=== PATIENT | male | born 1960 | race Caucasian/White ===

== ENCOUNTER 2018-10-13 09:44 | Day surgery (SDC) | payer OTHER, SELFPAY ==
--- NOTE | 2018-10-13 | PATH_ITS ---
[facility] Accession Number: [id number] . 01 Material submitted: . PART A: colon - POLYP AT 60 CM X3 PART B: colon - 20 CM POLYP BIOPSY X5 . 02 Diagnosis: A. Colon, Polyp at 60 cm x3, Biopsy: Tubular adenoma in seven of approximately ten fragments. . B. Colon, 20 cm Polyp x5, Biopsy: Multiple fragments of tubular adenoma and hyperplastic polyp. MRV/10/16/2018 . 02 Electronically signed: . Enriqueta Esteban MD, Pathologist NPI- [id number] . 01 Gross description: . Part A: POLYP AT 60 CM X3: Received in formalin are multiple fragment(s) of mobley, soft tissue measuring 0.1 x 0.1 x 0.1 cm to 0.3 x 0.2 x 0.2 cm which is entirely submitted and submitted entirely in 1 cassette(s) Part B: 20 CM POLYP BIOPSY X5: Received in formalin are multiple fragment(s) of mobley, soft tissue measuring 0.1 x 0.1 x 0.1 cm to 0.3 x 0.2 x 0.2 cm which is entirely submitted and submitted entirely in 1 cassette(s) /DMC /DMC . 02 Pathologist provided ICD-10: D12.6 . 02 CPT . 637297, [id number] Performed at: 01 [facility] [address], [place], [place] [id number] MD Perry Vera MD Phone: [phone] Performed at: 02 [facility] [address] , [place], [place] [id number] MD Enriqueta Esteban MD Phone: [phone]
[2018-10-13] MEDS: SODIUM CHLORIDE 0.9% 1,000 ML 200 ML IV (09:58)
[2018-10-13 09:59] VITALS: BMI 43.2
[2018-10-13 10:10] VITALS: BP 133/88; PULSE 91; RESP 16; TEMP 36.6; O2SAT 97
--- NOTE | 2018-10-13 10:56 | PM.HP.1 ---
History of Present Illness Date Patient Seen: 10/13/18 Time Patient Seen: 10:56 Chief complaint: [id number] Narrative: Patient is a gentleman whose last colonoscopy was 2 years ago. He has had numerous polyps removed on his prior 3 exams the last 1 there was none. He was told over to come back in 2 years. He is here for that follow-up exam. He has requested light sedation. Patient History Medical History Obstructive sleep apnea of adult (Chronic) Insomnia (Chronic) Morbid obesity with body mass index of 40.0-49.9 (Chronic) Periodic limb movement disorder (PLMD) (Chronic) Gingivitis (Acute) Fatigue (Chronic) Gout (Chronic) Hyperlipidemia (Chronic) Low back pain syndrome (Chronic) Pre-diabetes (Chronic) Snoring (Chronic) Venous (peripheral) insufficiency (Chronic) Alcohol abuse (Inactive) Social History (Updated 09/01/18 @ 12:48 by MAJO Banks) marital status: unmarried,single household members: none lives independently: Yes caregiver/support person: No Smoking Status: Current every day smoker substance use type: does not use Family & Social History Social History: household members none lives independently Yes caregiver/support person No Tobacco & Substance use: Smoking Status Current every day smoker Meds Home Medications Medication Instructions Recorded Confirmed Type atenolol 100 mg PO QDAY #0 08/25/12 10/13/18 History aspirin 81 mg PO Q DAY #0 08/28/12 10/13/18 History atorvastatin 40 mg tablet 40 mg PO DAILY 06/29/18 10/13/18 History cyclobenzaprine 10 mg tablet 10 mg PO BEDTIME 06/29/18 10/13/18 History diclofenac 1 % topical gel 2 gram TOP QID 06/29/18 10/13/18 History lisinopril 20 mg tablet 20 mg PO DAILY 06/29/18 10/13/18 History Allergies Allergy/AdvReac Type Severity Reaction Status Date / Time No Known Allergies Allergy Uncoded 09/14/18 14:47 Review of Systems Review of Systems All systems reviewed & are unremarkable except as noted in HPI and below Exam Vital Signs (past 8 hours): - 10/13/18 10:10 Temperature 97.8 F Pulse Rate 91 H Respiratory Rate 16 Blood Pressure 133/88 Pulse Oximetry 97 Oxygen Delivery Method Room Air Narrative Exam Narrative: Pleasant cooperative patient no apparent distress. Lungs are clear to auscultation. No rales or rhonchi. Heart regular rate and rhythm no murmur gallop. Abdomen is very protuberant and soft, nontender without mass. No obvious hernias. Patient is alert and oriented x3. Assessment & Plan Assessment & Plan narrative: The patient for a screening colonoscopy. I have discussed the procedure with them. Risks of bleeding, perforation which would necessitate major operation, failure to find remove all lesions, the potential tattoo were all discussed. All questions were answered. They wished to proceed.
--- NOTE | 2018-10-13 10:58 | PM.PREOP ---
Pre-operative Note Interval Note History & Physical reviewed/Exam performed by Physician: Yes Changes to H&P: No ASA Class (for procedural sedation): III
--- NOTE | 2018-10-13 13:03 | PM.OP.ENDO ---
Operative Date/Time/Diagnoses Date of procedure: 10/13/18 Time of procedure: 13:03 Pre-op diagnosis: Screening exam patient with a history of numerous polyps. Last exam 2 years ago. He was advised to have a repeat exam now. Post-op diagnosis: same (Extensive sigmoid diverticulosis. Occasional diverticula elsewhere. Eight small polyps removed with cold biopsy forceps.) Procedure & Clinicians Study performed: Colonoscopy with cold biopsy Same procedure as scheduled: Yes Indications: Screening Surgeon: Delvis Cameron Procedure Notes SCOAP/Timeout: Performed Procedure in detail: The patient was placed in the left lateral decubitus position and underwent IV sedation directed by the surgeon consisting of fentanyl and Versed. Digital exam was unremarkable. I really could not feel his prostate due to his body habitus.. The scope was inserted and advanced through the rectum into the sigmoid, descending, transverse, and ascending colon. The sigmoid contain numerous diverticuli it was difficult to get through it. There was a small polyp noted on the way in at 60 cm which was biopsied and removed.. The cecum was reached identified by the ileocecal valve and the appendiceal opening. The ileocecal valve was successfully cannulated. The terminal ileum was normal in appearance. The scope was gradually brought out. Polyps were found at 60 cm(2 additional lesions which were placed with the 1st lesion. within the rectum from the anal verge to about 20 cm there were 5 additional lesions. The largest of these almost appeared to be scar like. I biopsied it to remove the entire surface and then I also took a deeper bite under the mucosa as there appeared to be a small rounded area. The scope ultimately was retroflexed in the rectum. The appearance was remarkable for small internal hemorrhoids. The scope was removed and the patient tolerated the procedure well. The prep was good. Scope withdrawal time: 28 minutes Sedation minutes: 46 Findings: diverticulosis (Heavy assist concentration in the sigmoid), internal hemorrhoids and polyp (Eight small polyps removed) Specimen(s): other (Polyps) Complications: none Recommendations: Colonscopy in 3 years and Start medication(s) (Metamucil daily) Follow up: as needed Disposition: PACU
[2018-10-13] MEDS: MIDAZOLAM 5 MG/5 ML VIAL IV (13:04)
[2018-10-13] MEDS: fentaNYL 250 MCG/5 ML INJ IV (13:04)
[2018-10-13 13:05] VITALS: BP 150/82; PULSE 77; RESP 20; TEMP 37.1; O2SAT 98
[2018-10-13 13:15] VITALS: BP 137/86
== END 2018-10-13 13:28 | disposition home or self-care (01) ==
PROVIDERS: PCP Internal Medicine; Visit Provider Specialist
PROC: 0DJD8ZZ Inspection of Lower Intestinal Tract, Via Natural or Artificial Opening Endoscopic (ICD-10-PCS; CPT 45378; principal; 2018-10-13 10:45)
DX: Z12.11 Encounter for screening for malignant neoplasm of colon (principal); K57.30 Diverticulosis of large intestine without perforation or abscess without bleeding; D12.6 Benign neoplasm of colon, unspecified; G47.33 Obstructive sleep apnea (adult) (pediatric); E66.01 Morbid (severe) obesity due to excess calories; Z68.41 Body mass index [BMI] 40.0-44.9, adult; R73.03 Prediabetes; F17.210 Nicotine dependence, cigarettes, uncomplicated
CPT/HCPCS: 45380; 99152; 99153; J2250; J3010

== ENCOUNTER 2022-03-24 15:29 | Emergency (ER) | payer OTHER, MEDICAID, SELFPAY ==
[2022-03-24 15:45] VITALS: BP 165/85; PULSE 81; RESP 24; TEMP 36.6; O2SAT 96; BMI 41.8
--- NOTE | 2022-03-24 15:51 | DI.RAD.S_ITS ---
PROCEDURE: XR CHEST 2V INDICATIONS: shortness of breath TECHNIQUE: 2 views of the chest were acquired. COMPARISON: [facility], , CHEST FOR PICC PLACEMENT, 08/30/2012, 16:37. FINDINGS: Surgical changes and devices: None. Lungs and pleura: Right lung is clear. Subtle left basilar pulmonary radiopacities are present. No pleural effusion or pneumothorax. Mediastinum: Mediastinal contours are normal. Heart size is normal. Bones and chest wall: No suspicious bony abnormalities. Soft tissues appear unremarkable. IMPRESSION: Subtle left basilar pulmonary radiopacities suspicious for aspiration or infection. Short interval followup is recommended with resolution of the patient's symptoms to ensure there is no underlying pulmonary pathology. Dictated by: Abby Vazquez M.D. on 03/24/2022 at 16:39 Approved by: Abby Vazquez M.D. on 03/24/2022 at 16:39
[2022-03-24 16:58] LABS: Influenza A - CEPHEID Flu A POSITIVE (NEGATIVE)
[2022-03-24 16:59] LABS: COVID-19 CEPHEID 4-PLEX PCR Negative (Negative); Influenza B - CEPHEID Flu B NEGATIVE (NEGATIVE); Respiratory Syncytial Virus Negative (Negative)
[2022-03-24 19:45] LABS: Add Manual Diff / Slide Review NO; Basophils Absolute Auto 0 /uL (0-100); Basophils Percent Auto 0.3 % (0-2); Eosinophils Absolute Auto 100 /uL (0-450); Eosinophils Percent Auto 0.7 % (2-4); Hematocrit 47.1 % (41-53); Hemoglobin 16.1 g/dL (13.5-17.5); Lymphocytes Absolute Auto 2600 /uL (1100-4500); Lymphocytes Percent Auto 29.3 % (25-40); Mean Corpuscular HGB Conc 34.3 % (30-36); Mean Corpuscular Hemoglobin 30.5 PG (26-34); Mean Corpuscular Volume 89.1 fL (80-100); Monocytes Absolute Auto 1200 /uL (0-900); Neutrophils Absolute Auto 5000 /uL (1500-7000); Neutrophils Percent Auto 55.7 % (50-75); Platelet Count 284 X10^3/uL (150-400); Red Blood Cell Count 5.28 X10^6/uL (4.5-5.9); Red Cell Distribution Width 13.1 % (11.6-14.8); White Blood Cell Count 8.9 X10^3/uL (4.5-11.0)
[2022-03-24 19:55] LABS: INR 1.1 (0.9-1.3); Prothrombin Time 12.4 SECONDS (10.1-12.7)
[2022-03-24 20:03] LABS: Lactate (Lactic Acid) 1.4 mmol/L (0.7-2.1)
[2022-03-24 20:04] LABS: Alanine Aminotransferase 38 IU/L (<50); Albumin 4.2 g/dL (3.5-5.0); Albumin Globulin Ratio 1.2 (1.0-2.8); Alkaline Phosphatase 80 U/L (38-126); Aspartate Aminotransferase 27 IU/L (17-59); BUN Creatinine Ratio 18.9 (6-22); Bilirubin Total 0.7 mg/dL (0.2-1.3); Blood Urea Nitrogen 14 mg/dL (9-20); Calcium 9.5 mg/dL (8.4-10.2); Carbon Dioxide 23 mmol/L (22-32); Chloride 106 mmol/L (98-107); Estimated Glomerular Filt Rate > 60 mL/min (>60); Globulin 3.5 g/dL (1.7-4.1); Glucose 112 mg/dL (80-110); HEMOLYSIS < 15 (0-50); Potassium 4.4 mmol/L (3.4-5.1); Sodium 140 mmol/L (137-145); Total Protein 7.7 g/dL (6.3-8.2)
[2022-03-24 20:15] LABS: NT-proBNP (BNP-Adult 18+) 39 pg/mL (<125); Troponin I < 0.012 ng/mL (0.01-0.034)
[2022-03-24 23:42] VITALS: BP 160/83; PULSE 78; RESP 20; TEMP 36.6; O2SAT 97
--- NOTE | 2022-03-25 00:12 | ED.GENADULT ---
HPI - General Adult General Chief complaint: Shortness of Breath/Dyspnea Stated complaint: SOB, Thinks Influenza A Time Seen by Provider: 03/24/22 18:09 Source: patient Mode of arrival: Ambulatory History of Present Illness HPI narrative: Patient is a 61-year-old male who approximately 10 days ago started having influenza like symptoms to include a cough and fatigue. He denies having any fevers. Initially he thought he potentially had COVID but he tested himself at home and it was negative. He states he now is having shortness of breath specifically on exertion. No cough. No rashes. No underlying lung pathology. Has not tried anything for his symptoms prior to arrival. Related Data Home Medications Medication Instructions Recorded Confirmed atenolol 50 mg tablet 100 mg PO QDAY ##0 08/25/12 10/13/18 aspirin 81 mg tablet,delayed 81 mg PO Q DAY ##0 08/28/12 10/13/18 release atorvastatin 40 mg tablet 40 mg PO DAILY 06/29/18 10/13/18 cyclobenzaprine 10 mg tablet 10 mg PO BEDTIME 06/29/18 10/13/18 diclofenac sodium 1 % topical gel 2 gram topical QID 06/29/18 10/13/18 lisinopril 20 mg tablet 20 mg PO DAILY 06/29/18 10/13/18 Previous Rx's Medication Instructions Recorded azithromycin 250 mg tablet See Rx Instructions PO .COMPLEX #6 03/25/22 tabs Allergies Allergy/AdvReac Type Severity Reaction Status Date / Time No Known Allergies Allergy Uncoded 09/14/18 14:47 Review of Systems Constitutional Constitutional: Reports system reviewed and no additional complaints, except as documented ENT Ears, Nose, Mouth, and Throat: Reports system reviewed and no additional complaints, except as documented Cardiovascular Cardiovascular: Reports system reviewed and no additional complaints, except as documented Respiratory Respiratory: Reports system reviewed and no additional complaints, except as documented Integumentary/Breasts Skin/Breast: Reports system reviewed and no additional complaints, except as documented Neurologic Neurologic: Reports system reviewed and no additional complaints, except as documented Hematologic/Lymphatic On Anticoagulants: No Allergic/Immunologic Allergic/Immunologic: Reports system reviewed and no additional complaints, except as documented Patient History Medical History Alcohol abuse Fatigue Gingivitis Gout Hyperlipidemia Insomnia Low back pain syndrome Morbid obesity with body mass index of 40.0-49.9 Obstructive sleep apnea of adult Periodic limb movement disorder (PLMD) Pre-diabetes Snoring Venous (peripheral) insufficiency Social History marital status: unmarried,single household members: none lives independently: Yes caregiver/support person: No Smoking Status: Current every day smoker substance use type: does not use Smoking Status: Current every day smoker Substance Use Type: does not use Exam Initial Vital Signs Initial Vital Signs: Vital Signs Temperature 98 F 03/24/22 15:45 Pulse Rate 81 03/24/22 15:45 Respiratory Rate 24 03/24/22 15:45 Blood Pressure 165/85 H 03/24/22 15:45 Pulse Oximetry 96 03/24/22 15:45 Oxygen Delivery Method 03/24/22 15:45 Const General: cooperative and comfortable HENMT Head: normal to inspection and normocephalic Resp Effort & Inspection: normal respiratory effort Auscultation: clear to auscultation bilaterally Cardio Rate: regular rate Rhythm: regular rhythm Neuro General: patient alert, patient awake and moves all extremities Extrem General: normal to inspection and capillary refill normal Course Orders Ordered: ED Orders 03/24/22 19:28 Complete Blood Count AUTO DIFF Stat Comprehensive Metabolic Panel Stat Lactate (Lactic Acid) Stat NT-proBNP (BNP-Adult 18+) Stat Prothrombin Time INR Stat Troponin I Stat Vital Signs Vital signs: Vital Signs - 8 hr 03/24/22 23:42 Temperature 97.8 F Pulse Rate 78 Respiratory Rate 20 Blood Pressure 160/83 H Pulse Oximetry 97 Oxygen Delivery Method Room Air Medical Decision Making Lab Data Lab results reviewed: Yes I reviewed the patient's lab results. Result diagrams: 03/24/22 19:28 03/24/22 19:28 Labs: Lab Results 03/24/22 03/24/22 03/24/22 Range/Units 15:52 19:28 19:28 WBC 8.9 (4.5-11.0) X10^3/uL RBC 5.28 (4.5-5.9) X10^6/uL Hgb 16.1 (13.5-17.5) g/dL Hct 47.1 (41-53) % MCV 89.1 (80-100) fL MCH 30.5 (26-34) PG MCHC 34.3 (30-36) % RDW 13.1 (11.6-14.8) % Plt Count 284 (150-400) X10^3/uL Neut % (Auto) 55.7 (50-75) % Lymph % (Auto) 29.3 (25-40) % Rankin % (Auto) 14.0 (3-14) % Eos % (Auto) 0.7 L (2-4) % Baso % (Auto) 0.3 (0-2) % Neut # (Auto) 5000 (3553-6892) /uL Lymph # (Auto) 2600 (5412-6579) /uL Rankin # (Auto) 1200 H (0-900) /uL Eos # (Auto) 100 (0-450) /uL Baso # (Auto) 0 (0-100) /uL PT 12.4 (10.1-12.7) SECONDS INR 1.1 (0.9-1.3) Sodium (137-145) mmol/L Potassium (3.4-5.1) mmol/L Chloride (98-107) mmol/L Carbon Dioxide (22-32) mmol/L BUN (9-20) mg/dL Creatinine (0.66-1.25) mg/dL Estimated GFR (>60) mL/min BUN/Creatinine Ratio (6-22) Glucose (80-110) mg/dL Lactate (0.7-2.1) mmol/L Calcium (8.4-10.2) mg/dL Total Bilirubin (0.2-1.3) mg/dL AST (17-59) IU/L ALT (<50) IU/L Alkaline Phosphatase (38-126) U/L Troponin I (0.01-0.034) ng/mL NT-Pro-B Natriuret Pep (<125) pg/mL Total Protein (6.3-8.2) g/dL Albumin (3.5-5.0) g/dL Globulin (1.7-4.1) g/dL Albumin/Globulin Ratio (1.0-2.8) SARS-CoV-2 (PCR) Negative (Negative) Influenza A (RT-PCR) Flu a positive H (NEGATIVE) Influenza B (RT-PCR) Flu b negative (NEGATIVE) RSV (PCR) Negative (Negative) 03/24/22 03/24/22 Range/Units 19:28 19:28 WBC (4.5-11.0) X10^3/uL RBC (4.5-5.9) X10^6/uL Hgb (13.5-17.5) g/dL Hct (41-53) % MCV (80-100) fL MCH (26-34) PG MCHC (30-36) % RDW (11.6-14.8) % Plt Count (150-400) X10^3/uL Neut % (Auto) (50-75) % Lymph % (Auto) (25-40) % Rankin % (Auto) (3-14) % Eos % (Auto) (2-4) % Baso % (Auto) (0-2) % Neut # (Auto) (8840-1505) /uL Lymph # (Auto) (3887-3625) /uL Rankin # (Auto) (0-900) /uL Eos # (Auto) (0-450) /uL Baso # (Auto) (0-100) /uL PT (10.1-12.7) SECONDS INR (0.9-1.3) Sodium 140 (137-145) mmol/L Potassium 4.4 (3.4-5.1) mmol/L Chloride 106 (98-107) mmol/L Carbon Dioxide 23 (22-32) mmol/L BUN 14 (9-20) mg/dL Creatinine 0.74 (0.66-1.25) mg/dL Estimated GFR > 60 (>60) mL/min BUN/Creatinine Ratio 18.9 (6-22) Glucose 112 H (80-110) mg/dL Lactate 1.4 (0.7-2.1) mmol/L Calcium 9.5 (8.4-10.2) mg/dL Total Bilirubin 0.7 (0.2-1.3) mg/dL AST 27 (17-59) IU/L ALT 38 (<50) IU/L Alkaline Phosphatase 80 (38-126) U/L Troponin I < 0.012 (0.01-0.034) ng/mL NT-Pro-B Natriuret Pep 39 (<125) pg/mL Total Protein 7.7 (6.3-8.2) g/dL Albumin 4.2 (3.5-5.0) g/dL Globulin 3.5 (1.7-4.1) g/dL Albumin/Globulin Ratio 1.2 (1.0-2.8) SARS-CoV-2 (PCR) (Negative) Influenza A (RT-PCR) (NEGATIVE) Influenza B (RT-PCR) (NEGATIVE) RSV (PCR) (Negative) Imaging Data Chest x-ray: Radiologist's Impression: [address] [address] XRay Report Signed Patient: José Cisse MR#: [id number] : 1960 Acct:[id number] Age/Sex: 61 / M Date of Service: 03/24/22 Loc: ED Accession Number: [id number] ?? Procedure: XR chest 2V Ordering Provider: Juhi Charles D.O. PROCEDURE:? XR CHEST 2V ? INDICATIONS:? shortness of breath ? TECHNIQUE:? 2 views of the chest were acquired.? ? COMPARISON:? [facility], , CHEST FOR PICC PLACEMENT, 08/30/2012, 16:37. ? FINDINGS:? ? Surgical changes and devices:? None.? ? Lungs and pleura:? Right lung is clear.? Subtle left basilar pulmonary radiopacities are present.? No pleural effusion or pneumothorax. ? Mediastinum:? Mediastinal contours are normal.? Heart size is normal.? ? Bones and chest wall:? No suspicious bony abnormalities.? Soft tissues appear unremarkable.? ? IMPRESSION:? Subtle left basilar pulmonary radiopacities suspicious for aspiration or infection. Short interval followup is recommended with resolution of the patient's symptoms to ensure there is no underlying pulmonary pathology. ? ? ? Dictated by: Abby Vazquez M.D. on 03/24/2022 at 16:39 ? ? Approved by: Abby Vazquez M.D. on 03/24/2022 at 16:39?? MDM Narrative Medical decision making narrative: Patient is influenza A positive but does have chest x-ray findings concerning for pneumonia which is most likely the cause of his symptoms. He denies any chest pain. Had a discussion with him that the chest x-ray findings are most likely related to influenza however we can not be 100% sure that is not a super facial bacterial. He is not hypoxic. Not tachypneic. Plan will be is to give him a prescription for antibiotics but he will hold on filling this for the next 24-48 hours. If his symptoms worsen or do not improve that he can fill his prescription tried taking it as directed however he does improve then he will just discard the prescription. I did review the triage after the patient was discharged. He did not mention anything to myself about his gum pain after having the tooth removed this was not evaluated during his visit today. He was given return precautions. I have low suspicion for acute CHF. Low suspicion for ACS. Low suspicion for pulmonary embolism given his presentation and history and physical today. Discharge Plan Departure Patient Disposition: Home Clinical Impression: Influenza A, Shortness of breath Instructions: DI for Influenza -- Adult Activity Restrictions/Additional Instructions: Recommend that you continue to take all of your medications as directed. You can take Tylenol or ibuprofen for any fevers. You were given a prescription for antibiotics. I recommend that you wait for the next 24-48 hours before filling this prescription. If your symptoms worsen or do not improve then you can fill it and start taking it as directed. If you start to improve then you can discard this prescription. Contact your primary doctor for follow-up. Return to the emergency department for any new or worsening symptoms. Prescriptions: New azithromycin 250 mg tablet See Rx Instructions .ROUTE .COMPLEX Qty: 6 0RF Rx Instructions: For 250 mg dose pack: take 500 mg today (day 1), then 250 mg for 4 days (days 2-5) No Action atenolol 50 MG tablet 100 mg PO QDAY Qty: 0 Label Comments: Patient states Yup, thats something I take everyday aspirin 81 MG tablet,delayed release (DR/EC) 81 mg PO Q DAY Qty: 0 atorvastatin 40 mg tablet 40 mg PO DAILY Label Comments: Patient non compliant with medication treatment. Takes when he remembers to take it. cyclobenzaprine 10 mg tablet 10 mg PO BEDTIME diclofenac sodium 1 % gel 2 gram TOP QID lisinopril 20 mg tablet 20 mg PO DAILY Label Comments: patient is not compliant with recommended treatment. Takes when he wants and remembers Referrals: Radha Turner MD [Primary Care Provider] - Stand Alone Forms: Patient Portal/API
== END 2022-03-25 00:23 | disposition home or self-care (01) ==
PROVIDERS: Emergency Medicine; Emergency Provider Emergency Medicine; PCP Internal Medicine
DX: J10.1 Influenza due to other identified influenza virus with other respiratory manifestations (principal); R06.02 Shortness of breath; Z20.822 Contact with and (suspected) exposure to COVID-19
CPT/HCPCS: 0241U; 71046; 80053; 83605; 83880; 84484; 85025; 85610; 99283; 99284

== ENCOUNTER 2023-03-16 08:01 | Emergency (ER) | payer OTHER, MEDICAID, SELFPAY ==
--- NOTE | 2023-03-16 08:16 | DI.RAD.S_ITS ---
PROCEDURE: XR FOOT LT MIN 3V INDICATIONS: foot pain. injury TECHNIQUE: 3 views of the foot were acquired. COMPARISON: None. FINDINGS: Bones: There is a nondisplaced fracture involving the 5th metatarsal tuft. No suspicious bony lesions. Calcaneal spurring. Mild osteoarthritic changes. Soft tissues: No tibiotalar joint effusion. Achilles tendon appears normal. IMPRESSION: 1. Nondisplaced 5th metatarsal fracture. Dictated by: Florencio Baez M.D. on 03/16/2023 at 9:36 Approved by: Florencio Baez M.D. on 03/16/2023 at 9:38
[2023-03-16 08:17] VITALS: BP 172/77; PULSE 64; RESP 15; TEMP 36.5; O2SAT 98
--- NOTE | 2023-03-16 08:22 | ED.GENADULT ---
HPI - General Adult General Chief complaint: Extremity Injury, Lower Stated complaint: poss bone/toe fracture, poss influenza Time Seen by Provider: 03/16/23 08:17 Source: patient Mode of arrival: Ambulatory Limitations: no limitations History of Present Illness HPI narrative: Patient is a 62-year-old male who approximately 5 weeks ago injured his left foot when he was walking on some gravel. He is had continued pain on the outside of his foot since then. It is somewhat better but has not completely improved. He is also had 10 days of a cough and sinus congestion. Approximately 1 year ago he was diagnosed with influenza that he was concerned that maybe that is going on again. Related Data Home Medications Medication Instructions Recorded Confirmed atenolol 50 mg tablet 100 mg PO QDAY ##0 08/25/12 10/13/18 aspirin 81 mg tablet,delayed 81 mg PO Q DAY ##0 08/28/12 10/13/18 release atorvastatin 40 mg tablet 40 mg PO DAILY 06/29/18 10/13/18 cyclobenzaprine 10 mg tablet 10 mg PO BEDTIME 06/29/18 10/13/18 diclofenac sodium 1 % topical gel 2 gram topical QID 06/29/18 10/13/18 lisinopril 20 mg tablet 20 mg PO DAILY 06/29/18 10/13/18 Previous Rx's Medication Instructions Recorded azithromycin 250 mg tablet See Rx Instructions PO .COMPLEX #6 03/25/22 tabs Allergies Allergy/AdvReac Type Severity Reaction Status Date / Time No Known Allergies Allergy Uncoded 09/14/18 14:47 Review of Systems Constitutional Constitutional: Reports system reviewed and no additional complaints, except as documented ENT Ears, Nose, Mouth, and Throat: Reports system reviewed and no additional complaints, except as documented Respiratory Respiratory: Reports system reviewed and no additional complaints, except as documented Musculoskeletal Musculoskeletal: Reports system reviewed and no additional complaints, except as documented Integumentary/Breasts Skin/Breast: Reports system reviewed and no additional complaints, except as documented Patient History Medical History (Updated 03/16/23 @ 10:12 by Chaocrta Feliciano DO) Gingivitis Pre-diabetes Low back pain syndrome Venous (peripheral) insufficiency Gout Alcohol abuse Fatigue Hyperlipidemia Insomnia Morbid obesity with body mass index of 40.0-49.9 Obstructive sleep apnea of adult Periodic limb movement disorder (PLMD) Snoring Social History (Reviewed 03/16/23 @ 08:24 by GENI Yates marital status: unmarried,single household members: none lives independently: Yes caregiver/support person: No Smoking Status: Current every day smoker substance use type: does not use Smoking Status: Current every day smoker Substance Use Type: does not use Exam Initial Vital Signs Initial Vital Signs: Vital Signs Temperature 97.7 F 03/16/23 08:17 Pulse Rate 64 03/16/23 08:17 Respiratory Rate 15 03/16/23 08:17 Blood Pressure 172/77 H 03/16/23 08:17 Pulse Oximetry 98 03/16/23 08:17 Oxygen Delivery Method Room Air 03/16/23 08:17 HENMT Head: normal to inspection and normocephalic Resp Effort & Inspection: normal respiratory effort Auscultation: clear to auscultation bilaterally Skin General: no rashes or lesions noted Neuro Sensory Exam: no sensory deficits noted Extrem Other: Mild discomfort of the base of the 5th metatarsal. No tenderness along the lateral malleolus or Achilles tendon. No proximal fibula tenderness. Course Orders Ordered: ED Orders 03/16/23 08:12 Covid-19 + FLU A/B + RSV - PCR Stat 03/16/23 08:16 XR foot LT min 3V Stat Vital Signs Vital signs: Vital Signs - 8 hr 03/16/23 08:17 Temperature 97.7 F Pulse Rate 64 Respiratory Rate 15 Blood Pressure 172/77 H Pulse Oximetry 98 Oxygen Delivery Method Room Air Medical Decision Making Lab Data Lab results reviewed: Yes I reviewed the patient's lab results. Labs: Lab Results 03/16/23 Range/Units 08:12 SARS-CoV-2 (PCR) Negative (Negative) Influenza A (RT-PCR) Flu a negative (NEGATIVE) Influenza B (RT-PCR) Flu b negative (NEGATIVE) RSV (PCR) Negative (Negative) Imaging Data Extremity x-ray #1: Radiologist's Impression: PROCEDURE: XR FOOT LT MIN 3V INDICATIONS: foot pain. injury TECHNIQUE: 3 views of the foot were acquired. COMPARISON: None. FINDINGS: Bones: There is a nondisplaced fracture involving the 5th metatarsal tuft. No suspicious bony lesions. Calcaneal spurring. Mild osteoarthritic changes. Soft tissues: No tibiotalar joint effusion. Achilles tendon appears normal. IMPRESSION: 1. Nondisplaced 5th metatarsal fracture. MDM Narrative Medical decision making narrative: COVID flu and RSV are all negative. Low suspicion for pneumonia. He has a clear lung exam. Is afebrile. No indication for chest x-ray. He does have a distal phalanx fracture of the left little toe. X-ray result shows metatarsal fracture but he does not have any metatarsal fractures on the x-ray. I discussed the x-ray with him. There was no further workup other than a anatoliy tape here in the ER. Will have the patient contact his primary provider for follow-up. He was given return precautions. Discharge Plan Departure Patient Disposition: Home Clinical Impression: Fracture of toe of left foot Instructions: DI for Toe Fracture Activity Restrictions/Additional Instructions: You have a nondisplaced fracture of the very end of your left little toe. You can try to anatoliy tape the little toe to the 1 next to it try to help with the discomfort. Also recommend ice. Contact your primary provider for a follow-up. Prescriptions: No Action atenolol 50 MG tablet 100 mg PO QDAY Qty: 0 Patient Comments: Patient states Yup, thats something I take everyday aspirin 81 MG tablet,delayed release (DR/EC) 81 mg PO Q DAY Qty: 0 azithromycin 250 mg tablet See Rx Instructions .ROUTE .COMPLEX Qty: 6 0RF Rx Instructions: For 250 mg dose pack: take 500 mg today (day 1), then 250 mg for 4 days (days 2-5) atorvastatin 40 mg tablet 40 mg PO DAILY Patient Comments: Patient non compliant with medication treatment. Takes when he remembers to take it. cyclobenzaprine 10 mg tablet 10 mg PO BEDTIME diclofenac sodium 1 % gel 2 gram TOP QID lisinopril 20 mg tablet 20 mg PO DAILY Patient Comments: patient is not compliant with recommended treatment. Takes when he wants and remembers Referrals: Radha Turner MD [Primary Care Provider] - Stand Alone Forms: Patient Portal/API
[2023-03-16 09:08] LABS: COVID-19 CEPHEID 4-PLEX PCR Negative (Negative); Influenza A - CEPHEID Flu A NEGATIVE (NEGATIVE); Influenza B - CEPHEID Flu B NEGATIVE (NEGATIVE); Respiratory Syncytial Virus Negative (Negative)
[2023-03-16 10:18] VITALS: BP 135/83; PULSE 67; O2SAT 96
== END 2023-03-16 10:25 | disposition home or self-care (01) ==
PROVIDERS: Emergency Provider Emergency Medicine; PCP Internal Medicine
DX: S92.505A Nondisplaced unspecified fracture of left lesser toe(s), initial encounter for closed fracture (principal); X58.XXXA Exposure to other specified factors, initial encounter; Z20.822 Contact with and (suspected) exposure to COVID-19; Z79.899 Other long term (current) drug therapy
CPT/HCPCS: 0241U; 73630; 99283

== ENCOUNTER 2023-09-08 07:51 | Day surgery (SDC) | payer OTHER, SELFPAY ==
--- NOTE | 2023-09-08 | PATH_ITS ---
[facility] Accession Number: [id number] No. of containers..02 Tissue . 01 Material submitted: . PART A: colon - ASCENDING POLYPS PART B: colon - HEPATIC JUNCTURE POLYP . 01 Diagnosis: Part A: ASCENDING POLYPS: 1. Tubular adenoma. 2. Colonic mucosa with benign lymphoid aggregate. . Part B: HEPATIC JUNCTURE POLYP: Tubular adenoma. STO 09/13/2023 1515 Local . 01 Electronically signed: . Perry Vera MD, Pathologist NPI- [id number] . 01 Gross description: . Part A: ASCENDING POLYPS: Received in formalin are 2 fragment(s) of mobley, soft tissue measuring 0.8 x 0.4 x 0.4 cm to 1.0 x 0.7 x 0.3 cm submitted entirely in 1 cassette(s) . Part B: HEPATIC JUNCTURE POLYP: Received in formalin is 1 fragment(s) of mobley, soft tissue measuring 0.6 x 0.5 x 0.5 cm submitted entirely in 1 cassette(s) /PURA 09/13/2023 1515 Local . 01 Pathologist provided ICD-10: D12.2, D12.3 . 01 CPT . 200202, 904206 Specimen Comment: A courtesy copy of this report has been sent to [phone] Performed at: [address] [id number] MD Perry Vera MD Phone: [phone]
[2023-09-08] MEDS: LACTATED RINGERS 1,000 ML 42 ML IV (08:06)
[2023-09-08 08:26] VITALS: BP 154/84; PULSE 68; RESP 18; TEMP 36.4; O2SAT 96
--- NOTE | 2023-09-08 08:46 | P.HP_ITS ---
History of Present Illness History of Present Illness Date Patient Seen: 09/08/23 Time Patient Seen: 08:46 Chief complaint: SDC Narrative: José is a 63-year-old man who presents for colonoscopy. His last was in [address] Cameron in several tubular adenomas were removed. He also had adenomatous polyps removed on a colonoscopy before 2019. No family history of colon cancer. [facility] Medical History (Updated 03/31/23 @ 00:00 by ) Gingivitis Pre-diabetes Low back pain syndrome Venous (peripheral) insufficiency Gout Alcohol abuse Fatigue Hyperlipidemia Insomnia Morbid obesity with body mass index of 40.0-49.9 Obstructive sleep apnea of adult Periodic limb movement disorder (PLMD) Snoring Social History marital status: unmarried,single household members: none lives independently: Yes caregiver/support person: No Smoking Status: Current every day smoker alcohol intake: never substance use type: does not use Meds Home Medications and Allergies Home Medications Medication Instructions Recorded Confirmed Type atenolol 50 mg tablet 100 mg PO QDAY ##0 08/25/12 10/13/18 History aspirin 81 mg tablet,delayed 81 mg PO Q DAY ##0 08/28/12 10/13/18 History release atorvastatin 40 mg tablet 40 mg PO DAILY 06/29/18 10/13/18 History cyclobenzaprine 10 mg tablet 10 mg PO BEDTIME 06/29/18 10/13/18 History diclofenac sodium 1 % topical gel 2 gram topical QID 06/29/18 10/13/18 History lisinopril 20 mg tablet 20 mg PO DAILY 06/29/18 10/13/18 History azithromycin 250 mg tablet See Rx Instructions PO .COMPLEX #6 03/25/22 Rx tabs peg 3350-electrolytes 236 240 ml PO Q10M #4,000 mL 09/01/23 Rx gram-22.74 gram-6.74 gram-5.86 gram solution (Golytely) Allergies Allergy/AdvReac Type Severity Reaction Status Date / Time No Known Drug Allergies Allergy Verified 09/08/23 07:12 Exam Vital Signs (past 8 hours): - 09/08/23 08:26 Temperature 97.6 F Pulse Rate 68 Respiratory Rate 18 Blood Pressure 154/84 H Pulse Oximetry 96 Oxygen Delivery Method Room Air Oxygen Delivery Method Room Air Const General: No acute distress Resp Effort & Inspection: normal respiratory effort GI Other: Obese Assessment & Plan Assessment and plan (1) History of colonic polyps: Status: Acute Plan We reviewed the risks and benefits of colonoscopy for history of polyps and he would like to proceed.
[2023-09-08 09:38] VITALS: BP 126/65; PULSE 64; RESP 20; TEMP 36.4; O2SAT 96
--- NOTE | 2023-09-08 09:38 | PM.OP.COLON ---
Operative Date/Time/Diagnoses Date of procedure: 09/08/23 Time of procedure: 09:38 Pre-op diagnosis: History of polyps Post-op diagnosis: same Procedure & Clinicians Study performed: Colonoscopy Same procedure as scheduled: Yes Surgeon: Sourav Zhou Procedure Notes Procedure in detail: Surgeon: Sourav Zhou MD Anesthesia: Myriam Hill DO Procedure: The patient was brought to the endoscopy suite, placed in left lateral decubitus position. The patient was connected to monitoring devices. A time-out was performed. Sedation was administered. Once the patient was adequately sedated, a digital rectal exam was performed and was normal. The scope was then inserted and advanced to the cecum where the appendiceal orifice was identified and photographed. The scope was then slowly withdrawn over greater than 6 minutes. The mucosa was thoroughly inspected. There were 2 5 mm polyps in the ascending colon removed with cold snare and sent together. There was a 7 mm polyp at the hepatic flexure removed with a cold snare. There was moderate sigmoid diverticulosis. The scope was retroflexed in the rectum. No other abnormalities were noted. The scope was straightened and removed. The patient was awakened and brought to recovery. Scope withdrawal time: 15 minutes Sedation time: 23 minutes EBL: 5 mL Findings: 3 polyps under 1 cm and diverticulosis Post-procedure Disposition: PACU
[2023-09-08 09:44] VITALS: BP 109/67; PULSE 63; RESP 16; O2SAT 96
[2023-09-08 09:49] VITALS: BP 129/76; PULSE 79; RESP 16; O2SAT 97
[2023-09-08 09:51] VITALS: BP 107/65; PULSE 69; RESP 16; O2SAT 96
== END 2023-09-08 10:10 | disposition home or self-care (01) ==
PROVIDERS: PCP Internal Medicine; Referring Provider Surgery; Visit Provider Surgery
PROC: 0DJD8ZZ Inspection of Lower Intestinal Tract, Via Natural or Artificial Opening Endoscopic (ICD-10-PCS; CPT 45378; principal; 2023-09-08 08:30)
DX: Z12.11 Encounter for screening for malignant neoplasm of colon (principal); Z86.010 Personal history of colon polyps; K57.30 Diverticulosis of large intestine without perforation or abscess without bleeding; D12.2 Benign neoplasm of ascending colon; D12.3 Benign neoplasm of transverse colon
CPT/HCPCS: 45385; J2704